=== PATIENT | male | born 1970 | race Caucasian/White ===

== ENCOUNTER 2018-05-10 10:09 | Emergency (ER) | payer OTHER ==
[2018-05-10 10:39] VITALS: BP 131/79
--- NOTE | 2018-05-10 11:49 | UC ---
Back Pain HPI - HPI Summary HPI Summary: Patient is here and vacation from [place]. 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 Patient twisted his back 3 days ago while in [place]. Has been taking 5 mg of Valium by mouth twice a day when necessary muscle spasms Tylenol ibuprofen and Lidoderm. Patient here requesting a few Valium so he can fly back to [place]. - History of Current Complaint Chief Complaint: UCBackPain Stated Complaint: BACK PAIN Time Seen by Provider: 05/10/18 11:32 Hx Obtained From: Patient Onset/Duration: Sudden Onset, Lasting Days - 3 Timing: Constant Pain Intensity: 1 Pain Scale Used: 0-10 Numeric - with pain med Back Pain: Is Discrete @ - low back Character: Throbbing, Spasmodic, Stiffness Aggravating Factor(s): Movement - Allergies/Home Medications Allergies/Adverse Reactions: Allergies Allergy/AdvReac Type Severity Reaction Status Date / Time No Known Allergies Allergy Verified 05/10/18 10:33 Home Medications: Home Medications Acetaminophen [Acetaminophen ER] 1,300 mg PO Q8H PRN 05/10/18 [History Confirmed 05/10/18] Diazepam TAB(*) [Valium TAB(*)] 5 mg PO BID PRN 05/10/18 [History Confirmed ] Ibuprofen TAB* [Advil TAB*] 600 mg PO Q6H PRN 05/10/18 [History Confirmed ] Lidocaine 4% TOPICAL* 1 applic TOPICAL SEE INSTRUCTIONS PRN 05/10/18 [History Confirmed 05/10/18] PMH/Surg Hx/FS Hx/Imm Hx Previously Healthy: Yes - Surgical History Surgical History: None - Family History Known Family History: Positive: None - Social History Occupation: Employed Full-time Lives: With Family Alcohol Use: Weekly Substance Use Type: None Smoking Status (MU): Never Smoked Tobacco Review of Systems Constitutional: Negative Skin: Negative Eyes: Negative ENT: Negative Respiratory: Negative Cardiovascular: Negative Gastrointestinal: Negative Genitourinary: Negative Motor: Negative Neurovascular: Negative Musculoskeletal: Myalgia - muscle spasm mid-low back Neurological: Negative Psychological: Negative Is Patient Immunocompromised?: No All Other Systems Reviewed And Are Negative: Yes Physical Exam Triage Information Reviewed: Yes Appearance: Well-Appearing, No Pain Distress, Well-Nourished Vital Signs: Initial Vital Signs Temp 98 F 05/10/18 10:29 Pulse 70 07/26/18 10:29 Resp 16 05/10/18 10:29 BP 131/79 05/10/18 10:29 Pulse Ox 100 05/10/18 10:29 Vital Signs Reviewed: Yes Eye Exam: Normal Eyes: Positive: Conjunctiva Clear ENT Exam: Normal ENT: Positive: Normal ENT inspection, Hearing grossly normal, Pharynx normal. Negative: Trismus, Muffled voice, Hoarse voice Dental Exam: Normal Neck exam: Normal Neck: Positive: Supple, Nontender Respiratory Exam: Normal Respiratory: Positive: Chest non-tender, No respiratory distress, No accessory muscle use Cardiovascular Exam: Normal Cardiovascular: Positive: RRR, Pulses Normal, Brisk Capillary Refill Abdominal Exam: Normal Abdomen Description: Negative: CVA Tenderness (R), CVA Tenderness (L) Musculoskeletal Exam: Normal Musculoskeletal: Positive: Strength Intact, ROM Intact, No Edema Neurological Exam: Normal Neurological: Positive: Alert, Muscle Tone Normal Psychological Exam: Normal Skin Exam: Normal Back Pain Course/Dx - Course Course Of Treatment: continue ibuprofen, tylenol, valuim and lidocain follow with pcp upon return to [place] early next week - Differential Dx/Diagnosis Provider Diagnoses: muscle spasm mid-low back Discharge - Sign-Out/Discharge Documenting (check all that apply): Patient Departure - Discharge Plan Condition: Stable Disposition: HOME Prescriptions: Diazepam TAB(*) [Valium TAB(*)] 5 mg PO BID #10 tab MDD 2 Patient Education Materials: Low Back Strain (ED), Lower Back Exercises (ED) Referrals: WILL Barragan [Medical Doctor] - If Needed - Billing Disposition and Condition Condition: STABLE Disposition: Home Attestation Statement User Type: Provider - I was available for consult. This patient was seen by the JAKY. The patient was not presented to, seen by, or examined by me. -Alicia
== END 2018-05-10 11:52 | disposition home or self-care (01) ==
LOC: UCCORT 10:09
DX: M62.830 Muscle spasm of back (principal); X50.1XXA Overexertion from prolonged static or awkward postures, initial encounter; Y92.9 Unspecified place or not applicable
CPT/HCPCS: 99202; G0463